=== PATIENT | male | born 1990 | race Caucasian/White ===

== ENCOUNTER 2017-03-03 22:52 | Emergency (ER) | payer SELFPAY ==
[~2017-03-03 22:52] MED LIST: LINEZOLID PO; [UNRECOGNIZED DRUG - OTHER] PO
== END 2017-03-04 00:43 | disposition home or self-care (01) ==
LOC: ER 22:52
DX: R11.2 Nausea with vomiting, unspecified (principal); R50.9 Fever, unspecified; R10.9 Unspecified abdominal pain; F17.210 Nicotine dependence, cigarettes, uncomplicated